=== PATIENT | female | born 1975 | race Caucasian/White ===

== ENCOUNTER → 2016-12-20 | Outpatient (CLI) | payer BC, OTHER ==
[~2016-12-20] MED LIST: CMD25 PO; LRT5 PO; OXYSR10 PO
--- NOTE | 2016-12-21 06:50 | PAP/PSG TECHNICIAN REPORT ---
[facility] Medical Aides Teacher Polysomnogram Report Study name: None Report date: 12/21/2016 Study date: 12/20/2016 Referring Physician: Serge Gentile M.D. Name: COOPER SCHRADER Interpreting Physician: Joey Sparks M.D. Date of : 1975 Medical Aides Teacher: Angelina Garcia, PSGT. Sex: Female Age: 41 StudyType: PSG Weight: 247 lbs Height: 41 years, Height 4' 10" Neck Circum:16 inches BMI: 51.62 Medications: Doxycycline 100 mg, Clindamycin Phosphate 1% gel, Celebrex 100 mg, Prilosec 20 mg. Patient History 41 yr. old morbidly obese female presents to the sleep lab for a split study for snoring and hypersomulance. Rule out obesity hypoventilation and maría . ESS= 13, Neck= 16 inches. Parameters Monitored NPSG: E1-M2, E2-M1, Fp1-M2, Fp2-M1, F3-M2, F4-M2, F4-M1, C3-M2, C4-M2, C4-M1, O1-M2, O2-M2, O2-M1, T3-M2, T4-M1, P3-M2, P4-M1, CHIN1, CHIN2, HR, EKG, Legs, PFLOW, SNOR, FLOW, CFLOW, Tidal Volume, THOR, ABDO, SpO2, PLTH, CPRESS, ETCO2 Wave, ETCO2, pH Sleep Architecture Sleep Stages Time at Lights Off 10:16:11 PM STAGES Time (min.) TST (%) Time at Lights On 5:41:41 AM Wake 55.0 -- Total Recording Time (TRT) 446.50 min. N1 19.5 5 Total Sleep Period (TSP) 424.0 min. N2 233.0 60 Total Sleep Time (TST) 390.5min. N3 28.0 7 Awake Time 55.0 min. REM 110.0 28 Wake after Sleep Onset 33.5 min. Sleep Efficiency (SE) 88 % Sleep Onset Latency (KAR) 21.5 min. Number of Stage 1 Shifts None Awakenings 8 Stage Changes 42 Number of REM periods 7 REM 110.0 28 REM Latency 77.0 min. NREM 280.5 72 Body Position Analysis Supine Right Left Side Prone Vertical Total Sleep Time (min.) 11.2 213.0 175.5 388.50 0.0 0.0 Total Sleep Time (%) 1% 55% 45% 99 0% N/A% Total Sleep Time REM (min.) 0.0 67.0 43.0 None 0.0 0.0 Total Sleep Time NREM (min.) 2.0 146.0 132.5 None 0.0 0.0 Intermittent Wake (min.) 9.2 25.1 20.6 None 0.0 0.0 Total Sleep Period (%) 2% None None None None None Arousals Myoclonus (PLM) * Events Count Index Events Count Index Spontaneous 62 10 Events Awake (PLMW) 1 1.1 Respiratory 14 2.2 Events Asleep w/ Arousal (PLMA) 16 2.5 PLM 16 2 Events Asleep w/o Arousal (PLMS) 342 52.5 Snoring 63 10 Total Asleep 358 55.0 Total 151 23 Total 359 48 Respiratory Analysis * CA OA MA CH H RERA Total Count 4 1 0 0 83 26 88 Index 0.6 0.2 0.0 0 12.8 4 17.5 Mean Duration 12.3 14.2 0.0 0.00 18.5 14.8 17.4 Longest Duration 13.5 14.2 0.0 0.00 0.0 27.4 52.0 Respiratory Event Summary Total Supine ~Supine Right Left Prone REM NREM Apneas Count 5 0 5 5 0 N/A 5 0 Index 0.8 0 1 1.4 0.0 N/A 3 0 Hypopneas (4% Desat) Count 83 2 81 60 21 N/A 47 36 Index 12.8 60.0 13 16.9 7.2 N/A 25.6 7.7 Apneas & All Hypopneas Count 88 2 86 65 21 N/A 52 36 Index 13.5 60 13 18 7 N/A 28.4 7.7 Respiratory Events (Composite Engineer+All Hyp+RERA) Count 88 2 112 87 25 N/A 52 36 Index 17.5 60 17 24.5 8.5 N/A 36.0 10.3 Respiratory Related Arousal Count 14 2 14 10 4 N/A 8 6 Index 2.2 0 2 3 1 N/A 4 1 Snoring Analysis Supine Right Left Prone REM NREM Total Snore duration 59.1 min Snores count 5 1,575 1,882 N/A 638 2,824 3,462 Snore mean duration 1.0 Sec Snores index 150 444 643 N/A 348.0 604.1 531.9 TST with snoring (%) 15.1% SpO2 Analysis Total REM NREM Awake <50% 0.0 min. 0.0 min. 0.0 min. 0.0 min. 51 - 60% 0.0 min. 0.0 min. 0.0 min. 0.0 min. 61 - 70% 0.0 min. 0.0 min. 0.0 min. 0.0 min. 71 - 80% 3.0 min. 3.0 min. 0.0 min. 0.0 min. 81 - 90% 319.2 min. 76.4 min. 222.9 min. 19.9 min. 91 - 100% 122.3 min. 30.2 min. 57.0 min. 35.0 min. Average 89 89 89 91 Minimum SpO2 74 74 83 87 Desaturation Event Index 24.6 48.5 20.1 0.0 # Desat. Events below 89% 151 72 79 0 Time(%) with Saturation below 89% 35.8 10.1 25.3 0.5 Time(min.) with Saturation below 89% 159.1 44.8 112.3 2.1 Heart Rate Analysis End Tidal CO2 Analysis Min (bpm) Max (bpm) Average (bpm) TSP (mins) % of TSP Awake 76 106 91 Above 55 mmHg 0.0 0.0 NREM 75 188 92 50-55 mmHg 0.3 0.1 REM 75 111 93 45-50 mmHg 6.3 1.6 Overall 75 188 92 40-45 mmHg 206.7 52.9 35-40 mmHg 170.8 43.7 30-35 mmHg 6.3 1.6 Average ETCO2 0.2 Supplemental O2 Values Minimum O2 level: None Value Start Time End Time Medical Aides Teacher Comments PSG Study MS. Schrader slept in the right, left, and supine positions. No cardiac arrhythmia .PLM's noted. No bruxism noted. Snoring was noted and scored as a 4 on a scale of 1 through 5. (0=no snoring, 5=snoring loud enough to be heard through a closed door or down the bunch way) Ms. Schrader awoke to use the restroom zero times during the night. Ms. Schrader stated, I did sleep as well as I do when I am in my own bed. The final report will be interpreted and signed by a sleep physician. The completed physician report will then be placed in the patient medical record. Patient slept well, respiratory events seen throughout study. Patient also displayed hypoxemia with and without events. Loud snoring and snorts were also heard and displayed throughout study. Therapy (cm H2O) 0 TIB (min.) 445.5 TST (min.) 390.5 Sleep Onset (min.) 21.5 REM Onset From Sleep (min.) 77.0 Sleep Efficiency % 88 Wakefulness (%) 12 Wakefulness (min.) 55.0 NREM 1 (%) 5 NREM 1 (min.) 19.5 NREM 2 (%) 60 NREM 2 (min.) 233.0 NREM 3 (%) 7 NREM 3 (min.) 28.0 REM (%) 28 REM (min.) 110.0 # Arousals 151 Arousal Index 23 # Snore 3,462 Snore Index 531.9 AHI 13.5 AHI Supine 60 AHI Non-Supine 13 NREM AHI 7.7 REM AHI 28.4 RDI 17.5 # Obstructive Apnea 1 # Central Apnea 4 # Mixed Apnea 0 # Hypopneas 83 RERAs 26 Total Respiratory Events 114 Time Below SpO2 89% (min.) 157.0 Mean NREM SpO2 (%) 89 Mean REM SpO2 (%) 89 Mean Sleep SpO2 (%) 89 Min NREM SpO2 (%) 83 Min REM SpO2 (%) 74 Position Supine (min.) 11.2 Position Non-supine (min.) 388.5 LM Index Sleep 55.0 LM Index NREM 55.6 LM Index REM 53.5 Mean Heart Rate (bpm) 92 Min Heart Rate (bpm) 75
--- NOTE | 2016-12-22 13:54 | POLYSOMNOGRAPH REPORT ---
CLINICAL DATA: A 41-year-old female with BMI of 51.6, referred by Dr. Jayson Gentile for a history of snoring and hypersomnolence. Her [place] sleepiness score was 13/24. SLEEP ARCHITECTURE: Total sleep period was 424 minutes. Total sleep time was 390.5 minutes divided between 280.5 minutes of non-REM sleep and 110 minutes of REM sleep. Sleep onset latency was 21.5 minutes. REM latency was 77 minutes. Sleep efficiency was 88%. Wake after sleep onset was 33.5 minutes. Sleep consisted of stage N1 5%, stage N2 60%, stage N3 7%, and REM 28%. AROUSAL DATA: 131 arousals were recorded for an index of 23 per hour. 63 due to snoring events. 14 were due to respiratory events. 62 were spontaneous. PLM DATA: 358 limb movements during sleep were noted for an index of 55 per hour with arousal index of 2.5 per hour. RESPIRATORY DATA: Mild sleep apnea was documented. The AHI was 13.5. There were 4 central and 1 obstructive apneic episodes. The longest duration of apnea was 14.2 seconds. There were 83 hypopneic episodes with a mean duration of 18.5 seconds. There were 26 RERAs with the longest RERA being 27.4 seconds. The patient's RDI was 17.5. OXIMETRY DATA: Nocturnal hypoxemia was seen. Oxygen kwasi was 74%. Mean saturation was 89%. Time below 89% was 35.8 minutes. EKG: Heart rates ranged from 75-111 beats per minute. No arrhythmias were noted. [employer]ING MAKER'S COMMENTS: The patient slept in the right, left, and supine positions. Snoring was severe, rated 4 on a scale of 1-5. The patient slept well. Respiratory events were seen throughout the study. The patient displayed hypoxemia with and without events. She did not meet split night criteria early enough to perform CPAP titration. IMPRESSION: Mild to moderate sleep apnea/hypopnea with nocturnal hypoxemia with an AHI of 13.5 and RDI of 17.5. The patient's oxygen kwasi was 74%. RECOMMENDATIONS: The patient may benefit from a repeat sleep study with CPAP or use of an oral appliance. [facility]
== END | disposition home or self-care (01) ==
LOC: C.NEUR 21:00
PROVIDERS: ATTEND Nurse Practitioner Family
DX: G47.30 Sleep apnea, unspecified (principal)